=== PATIENT | male | born 1995 | race Caucasian/White ===

== ENCOUNTER 2019-04-04 09:10 | Emergency (ER) | payer OTHER ==
[~2019-04-04] VITALS: Ht 167.6 cm; Wt 100.9 kg
[2019-04-04 09:12] VITALS: Ht 167.6 cm; Wt 100.9 kg
[2019-04-04] MEDS ORDERED: ULTRAM50 MG PO (09:57)
[2019-04-04 10:08] VITALS: BP 115/70
== END 2019-04-04 10:09 | disposition home or self-care (01) ==
LOC: D.ER 09:10
DX: S93.401A Sprain of unspecified ligament of right ankle, initial encounter (principal); X50.1XXA Overexertion from prolonged static or awkward postures, initial encounter; Y93.64 Activity, baseball; Y92.89 Other specified places as the place of occurrence of the external cause